=== PATIENT | female | born 1960 | race Hispanic/Latino ===

== ENCOUNTER 2024-09-04 18:02 | Emergency (ER) | payer OTHER, SELFPAY ==
[2024-09-04] VITALS (14 sets, daily range): BP systolic 107–151; BP diastolic 65–87; PULSE 86–107; RESP 13–18; TEMP 36.5–36.6; O2SAT 90–100
--- NOTE | ~2024-09-04 | CT_ITS ---
CT abdomen pelvis w con Ordering provider: Karina Bowen PA-C History: 63 years Female with . LLQ pain, L flank pain, N/V . Comparison: July 14, 2017 Technique: CT abdomen and pelvis with IV and without oral contrast. Automated exposure control and it erative reconstruction technique were employed. The dose-length product was 557.45 mGy-cm. 100 mL Omn ipaque 350 was given IV. Findings: VISUALIZED LOWER CHEST: Dependent atelectatic changes. UPPER ABDOMINAL ORGANS: Liver: Fat infiltration. Hepatomegaly. Gallbladder: Status post cholecystectomy. Spleen: Normal. Stomach/duodenum: Diverticulum seen. Heart of the duodenum. Pancreas: Normal. Adrenals: Normal. Kidneys: Normal. PELVIC ORGANS: The bladder is underfilled. BOWEL AND MESENTERY: Colon: Diverticulitis of the sigmoid colon with thickened wall and surrounding fat stranding. No evid ence of abscess or free air. Normal appendix. Small Bowel: Normal. No obstruction. Peritoneum/mesentery: No free air or free fluid. No mesenteric lymphadenopathy. RETROPERITONEUM: Mild atheromatous disease of the abdominal aorta. No retroperitoneal lymphadenopat hy. MUSCULOSKELETAL: Superficial soft tissues: The superficial soft tissues are normal. Bones: Age appropriate degenerative changes of the spine. IMPRESSION: 1. Diverticulitis of the sigmoid colon. 2. Hepatomegaly with fat infiltration is Reviewed, dictated and finalized at location A.
--- OUTSIDE RECORDS SUMMARY | 2024-09-04 18:04 | XMS_ITS | Continuity of Care Document ---
Author Organization [facility] Address [address] [place] [address] Phone Care Team Providers Care Crystal Inspector Name Role Phone Unavailable Unavailable Unavailable Allergies, Adverse Reactions, Alerts Substance Reaction Status Criticality No Known Allergies Active No Inform ation Medications Medication Instructions Dosage Effective Dates (start - stop) Status Comments No Drug Therapy Prescribed Procedures Procedure Date Voided Encounter Advance Directives Directive Yes / No Effective Date File Name No Information Encounters Encounter Description Practice Location Reason(s) For Visit Diagnoses Date Provider Providers Copied on Encounter [facility] , [address], [place], [place], [id number], tel:[phone] [employer] [place] On Page HEP A Vaccine (chief complaint) Encounter for immunization 8 No Information Family History Family Member Type Diagnosis Age At Onset No Information Payers Payer name Insurance type Covered democrat ID Authoriza tiradha(s) [facility] [id number] Social History Type Description Quantity Date Captured Comments Alcohol Use Details Unknown Caffeine Use Details Unknown Tobacco Use Status Never smoked tobacco 2017 Smoking Status Never smoker Non-Smoking Tobacco Use Details : No Details Available : No Details Available Sex Female Vital Signs Date / Time: Height Weight BMI Pulse Rate Blood Pressure Temperature Respiratory Rate Body Surface Area Head Circumference Head Circ. Percentile Wt./Adam. Percentile BMI percentile Pulse Ox Inhaled Ox 9:47 AM 61.00 in 741.805 kg (1635.4 0 lbs) 309. 00 kg/m eter (2) 81 /min 154/96 mm[Hg] 97.50 F 100 /min Chief Complaint And Reason For Visit From encounter dated '06/05/2017 09:45'. HEP A Vaccine (chief complaint) Reason For Referral Reason For Referral No Information History Of Present Illness Encounter Date Complaint History Of Prese nt Illness HEP A Vaccine Functional Status Date Functional Assessmen t No Information Medications Administered Medication Instructions Dosage Effective Dates (start - stop) Status Comments No Drug Therapy Prescribed Instructions Date Instruction Additional Infor mation No Information Assessments Type Assessment Date assessment Encounter for immunization Patient Care Teams Name Effective Dates (start - stop) Status Members No Information
--- OUTSIDE RECORDS SUMMARY | 2024-09-04 18:04 | XMS_ITS | CONTINUITY OF CARE DOCUMENT ---
Author Name keily michaud Address Unknown Organization [facility] Address [address] [place] [address] Phone [phone] Care Team Providers Care Central Office Associate Name Role Phone Garth Best MD Unavailable [phone] Garth Best MD Unavailable [phone] INSURANCE PROVIDERS Payer name Policy type / Coverage type [place] red constitution party ID AETNA SENIOR SUPPLEMENTAL INS Commercial insuran ce [employer] [id number]
--- NOTE | 2024-09-04 18:16 | ED_ITS ---
HPI - Abdominal Pain General Chief Complaint: Abdominal Pain Stated Complaint: L GROIN PAIN Time Seen by Provider: 09/04/24 18:09 Source: patient Mode of arrival: ambulatory Limitations: no limitations History of Present Illness HPI narrative: Patient is a 63-year-old female who presents the ED with report of left lower quadrant abdominal pain. Patient reports pain began this morning. Radiates around to her left lower back. Has not taken anything for pain. Reports some nausea and vomiting this morning. Last bowel movement was today, though patient reports she feels constipated. Denies fevers, dysuria, hematuria. Denies rectal bleeding or melena. She has previous history of diverticulitis and kidney stones, both of which feels somewhat similar. Related Data Allergies Allergy/AdvReac Type Severity Reaction Status Date / Time No Known Allergies Allergy Verified 09/04/24 18:03 Review of Systems 2 Review of Systems: All systems reviewed & are unremarkable except as noted in HPI. All systems reviewed & are unremarkable except as noted in HPI and below Exam 2 Narrative: GENERAL: Mildly uncomfortable appearing, obese with BMI of 32.7, non-toxic, in no acute distress. HEAD: Normocephalic, atraumatic. RESPIRATORY: Airway patent, respirations nonlabored. Clear to auscultation bilaterally, no rales, rhonchi, wheezing. CARDIOVASCULAR: Borderline tachycardic with regular rhythm without murmurs, rubs, or gallops. ABDOMINAL: Soft, tenderness to palpation in left lower quadrant and suprapubic region, no rebound. Nondistended. Normoactive BS. MUSCULOSKELETAL: Moves all extremities. No gross deformities. SKIN: Warm, dry, normal color. NEURO: A&O X3. Speech clear. Cranial nerves II-XII grossly intact. Steady gait. No ataxic movements. PSYCHIATRIC: Anxious, tearful. Normal interaction. Course Vital Signs Vital signs: Vital Signs Temperature 98 F 09/04/24 18:03 Pulse Rate 91 09/04/24 18:03 Respiratory Rate 16 09/04/24 18:03 Blood Pressure 151/87 H 09/04/24 18:03 Pulse Oximetry 98 09/04/24 18:03 Oxygen Delivery Room Air 09/04/24 18:03 Temperature 97.7 F 09/04/24 21:57 Pulse Rate 86 09/04/24 21:57 Respiratory Rate 16 09/04/24 21:57 Blood Pressure 127/76 09/04/24 21:57 Pulse Oximetry 98 09/04/24 21:57 Oxygen Delivery Room Air 09/04/24 18:03 MDM - Abdominal Pain MDM Narrative Medical decision making narrative: Patient presented to ED with left lower quadrant abdominal pain that began this morning, associated with nausea and vomiting. History of diverticulitis and previous kidney stones. Vital signs are stable upon arrival. Patient is afebrile. Cbc with white blood cell count of 18.9. No bandemia. CMP with anion gap of 14. Stable kidney function. Otherwise stable electrolytes. Normal LFTs and lipase. Urine with elevated specific gravity. No signs of infection. Given fluids and pain medication. CT scan of abdomen/pelvis was obtained and showing uncomplicated diverticulitis of sigmoid colon. No perforation or abscess. No ureterolithiasis. Discussed lab and imaging findings with patient. She is feeling better with supportive therapy. Discussed the need for antibiotics for diverticulitis. Discussed D/C home versus admission. Offered admission, utilize shared decision-making. Patient states she prefers to go home. She does feel comfortable going home. Will discharge on Cipro and Flagyl, short course of pain medication. Patient given 1st doses in the ED. Able to tolerate p.o. intake. Discussed very strict return precautions. Patient in agreement with plan. Discharged in stable condition. Medical Records Attestation: I reviewed the patient's medical records. Lab Data Attestation: I reviewed the patient's lab results. 09/04/24 18:25 09/04/24 18:33 Labs: Lab Results 09/04/24 09/04/24 09/04/24 Range/Units 18:25 18:33 20:03 WBC 18.9 H (4.5-10.0) K/mm3 RBC 4.43 (4.2-5.4) M/mm3 Hgb 13.0 (12.0-15.0) g/dL Hct 39.3 (37.0-47.0) % MCV 88.7 (80-100) fl MCH 29.3 (26-34) pg MCHC 33.1 (32-36) g/dl RDW 14.3 (11.5-14.5) % Plt Count 301 (150-375) k/mm3 MPV 11.2 H (7.4-10.4) fl Immature Gran % (Auto) 0.5 (0-0.5) % Neut % (Auto) 68.7 (45.5-73.1) % Lymph % (Auto) 24.3 (18.3-44.2) % [place] % (Auto) 5.7 (2.6-8.5) % Eos % (Auto) 0.5 (0-4.4) % Baso % (Auto) 0.3 (0.2-1.2) % Lymph # (Auto) 4.59 H (0.9-3.2) K/mm3 [place] # (Auto) 1.1 H (0.1-0.6) K/mm3 Eos # (Auto) 0.1 (0-0.3) K/mm3 Baso # (Auto) 0.1 (0.0-0.1) K/mm3 Abs Immat Gran (auto) 0.09 H (0.00-0.031) K/mm3 Absolute Neuts (auto) 13.0 H (1.3-6.7) K/mm3 Absolute Nucleated RBC 0.000 (0.0-0.012) K/mm3 Nucleated RBC % 0.0 (0.0-0.2) % Sodium 137 (137-145) mmol/L Potassium 4.3 (3.4-5.0) mmol/L Chloride 100 (98-107) mmol/L Carbon Dioxide 23 (22-30) mmol/L Anion Gap 14 H (4-12) mmol/L BUN 14 (7-17) mg/dL Creatinine 0.62 L 0.80 (0.7-1.0) mg/dL Estim Creat Clear Calc 77 61 ml/min Estimated GFR > 60 > 60 (59 - ) Glucose 113 H (65-110) mg/dL Calcium 9.4 (8.4-10.2) mg/dL Total Bilirubin 0.9 (0.2-1.3) mg/dL AST 23 (14-36) U/L ALT 26 (6-35) U/L Alkaline Phosphatase 115 (38-126) U/L Total Protein 8.0 (6.3-8.2) g/dL Albumin 4.5 (3.5-5.1) g/dL Lipase 86 (23-300) U/L Urine Color Yellow (Yellow) Urine Appearance Clear (Clear) Urine pH 5.5 (5.0-9.0) Ur Specific [place] > 1.045 H (1.001-1.035) Urine Protein Negative (Negative) mg/dL Urine Glucose (UA) Negative (Negative) mg/dL Urine Ketones Negative (Negative) mg/dL Ur Blood (Man) Negative (Negative) Urine Nitrate Negative (Negative) Urine Bilirubin Negative (Negative) Urine Urobilinogen 0.2 (<2.0) mg/dL Leukocyte Esterase Rfl Negative (Negative) DAMON/UL Imaging Data Attestation: I personally reviewed and interpreted this imaging study as follows: Radiologist's impression: ITS Impressions Abdomen/Pelvis CT 09/04/24 19:39 IMPRESSION: 1. Diverticulitis of the sigmoid colon. 2. Hepatomegaly with fat infiltration is Discharge Plan Discharge Clinical Impression: Diverticulitis of sigmoid colon Patient Disposition: Home Condition: Stable Instructions: Antibiotic Form, Diverticulitis (ED), Diverticulitis Diet (ED) Additional Instructions: Take both antibiotics as prescribed. It is important you finish both courses. Do not drink alcohol while taking metronidazole/Flagyl as this can cause a vomiting reaction. Continue Tylenol, ibuprofen as needed for pain. Fork as needed for more severe pain. Utilize Zofran as needed for nausea. Stay well- hydrated. It is recommended you follow a low-fiber diet while on antibiotics, then gradually increase fiber intake. Follow-up closely with your primary care doctor for further evaluation within the next 1 week. Return to the ED if you experience worsening or severe pain, unable to keep down food/drink/antibiotics, persistent fevers, rectal bleeding, or any other symptoms of concern. Patient Language: Telugu Prescriptions: New hydrocodone-acetaminophen 5-325 mg tablet 1 tablet PO Q6H PRN (Reason: pain) Qty: 10 0RF metronidazole 500 mg tablet 500 mg PO Q8H 7 Days Qty: 21 0RF ciprofloxacin HCl 500 mg tablet 500 mg PO Q12H 7 Days Qty: 14 0RF ondansetron 4 mg tablet,disintegrating 4 mg PO Q8H PRN (Reason: nausea and vomiting) Qty: 15 0RF Follow-up/Referrals: UNKNOWN,DOCTOR [Primary Care Provider] - Time of Disposition: 20:56
[2024-09-04] MEDS: oxyCODONE HCL (*CRX) 5 MG TAB IR PO (18:24)
[2024-09-04 18:34] LABS: Basophils Absolute Auto 0.1 K/mm3 (0.0-0.1); Basophils Percent Auto 0.3 % (0.2-1.2); Eosinophils Absolute Auto 0.1 K/mm3 (0-0.3); Eosinophils Percent Auto 0.5 % (0-4.4); Hematocrit 39.3 % (37.0-47.0); Immature Granulocyte Absolute 0.09 K/mm3 (0.00-0.031); Immature Granulocyte Percent A 0.5 % (0-0.5); Lymphocytes Absolute Auto 4.59 K/mm3 (0.9-3.2); Lymphocytes Percent Auto 24.3 % (18.3-44.2); Mean Corpuscular HGB Conc 33.1 g/dl (32-36); Mean Corpuscular Hemoglobin 29.3 pg (26-34); Mean Corpuscular Volume 88.7 fl (80-100); Mean Platelet Volume 11.2 fl (7.4-10.4); Monocytes Absolute Auto 1.1 K/mm3 (0.1-0.6); Monocytes Percent Auto 5.7 % (2.6-8.5); Neutrophils Percent Auto 68.7 % (45.5-73.1); Platelet Count Result 301 k/mm3 (150-375); Red Blood Count 4.43 M/mm3 (4.2-5.4); Red Cell Distribution Width 14.3 % (11.5-14.5); White Blood Count 18.9 K/mm3 (4.5-10.0)
[2024-09-04 18:35] LABS: Estimated CRCL calculation 61 ml/min; Estimated Glomerular Filt Rate > 60
[2024-09-04 19:12] LABS: Alanine Aminotransferase 26 U/L (6-35); Albumin Level 4.5 g/dL (3.5-5.1); Alkaline Phosphatase 115 U/L (38-126); Anion Gap 14 mmol/L (4-12); Aspartate Amino Transferase 23 U/L (14-36); Bilirubin,Total 0.9 mg/dL (0.2-1.3); Blood Urea Nitrogen 14 mg/dL (7-17); Calcium 9.4 mg/dL (8.4-10.2); Carbon Dioxide 23 mmol/L (22-30); Chloride 100 mmol/L (98-107); Estimated CRCL calculation 77 ml/min; Estimated Glomerular Filt Rate > 60; Glucose 113 mg/dL (65-110); Lipase 86 U/L (23-300); Potassium 4.3 mmol/L (3.4-5.0); Sodium 137 mmol/L (137-145)
--- OUTSIDE RECORDS SUMMARY | 2024-09-04 19:44 | XMS_ITS | Continuity of Care Document ---
Author Organization [facility] Address [address] [place] [address] Phone Care Team Providers Care Olap Developer Name Role Phone Unavailable Unavailable Unavailable Allergies, [...] Diagnoses Date Provider Providers Copied on Encounter [facility] , [address], [place], [place], [id number], tel:[phone] [employer] On Page HEP A Vaccine (chief complaint) Encounter for immunization 8 No Information Family History Family Member Type Diagnosis Age At Onset No Information Payers Payer name Insurance type Covered republican ID Authoriza tiradha(s) [facility] [id number] Social History Type Description Quantity Date Captured [...]
--- OUTSIDE RECORDS SUMMARY | 2024-09-04 19:44 | XMS_ITS | CONTINUITY OF CARE DOCUMENT ---
Author Name keily michaud Address Unknown Organization [facility] Address [address] [place] [address] Phone [phone] Care Team Providers Care Sustainability Officer Name Role Phone Garth Best MD Unavailable [phone] Garth Best MD Unavailable [phone] INSURANCE PROVIDERS Payer name Policy type / Coverage type [place] red constitution party ID AETNA SENIOR SUPPLEMENTAL INS Commercial insuran ce [employer] [id number]
--- OUTSIDE RECORDS SUMMARY | 2024-09-04 19:44 | XMS_ITS | Clinical Summary ---
Author Organization [facility] Address [address] [place] [address] Care Team Providers Care Breakfast Host Name Role Phone Unavailable Primary Care Provider Unavailabl e Social History Tobacco Use Types Packs/Day Years Used Date Smoking Tobacco: Never Assessed Comments Unknown Sex and Gender Information Value Date Recorded Sex Assigned at Not on file Legal Sex Female 7:45 PM CDT Gender Identity Not on file Sexual Orientation Not on file Plan of Treatment Health Maintenance Due Date Last Done Comments Cervical Cancer Screening Pa p Smear (Age 30 to 64) Every 3 Years 1962 Colorectal Cancer Screening Colonoscopy (10 Years) 1962 Annual Physical 1965 Hepatitis C 1980 DTaP, Tdap and Td Vaccines ( 1 - Tdap) 1981 Cervical Cancer Screening Pa p with HPV Testing (Age 30 to 64) Every 5 Years 1992 Cervical Cancer Screening with HPV 1992 Mammogram Screening 2002 Zoster Vaccines (1 of 2) 2012 COVID-19 Vaccine ( - 2023-2 5 season) 2024 RSV Immunization or 60+ Years (1 - 1-dose 75+ series) 2037 Meningococcal B Vaccine Aged Out No l onger eligible based on patient's age to complete this topic Meningococcal Vaccine Aged Out No urban rohith eligible based on patient's age to complete this topic Pneumococcal Vaccine: Pediat rics (0 to 5 Years) and At-Risk Patients (6 to 64 Years) Aged Out No longer eligible b ased on patient's age to complete this topic RSV Immunizations Under 20 Months Aged Out No longer eligible based on patient's age to complete this topic
--- OUTSIDE RECORDS SUMMARY | 2024-09-04 19:45 | XMS_ITS | Data Portability ---
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 Data reviewed and explained to the patient. Average apnea/hypopnea index (AHI) is 1.9. Patient used PAP > 4 hours 88% of the time. PAP is set at 5-15 cmH2O. PAP be reset at 6-9 cmH2O. Oxygen supplementation: none Patient is benefiting from PAP therapy. Encouraged patient to maintain PAP use more than 70% of the time. Statement of PAP use and benefits will be sent to the home care store. Educated the patient on problems and solutions associated with positive airway pressure (PAP) use. Difficulty tolerating pressure, mask leaks, intolerance of interface, nasal congestion, claustrophobic response, dry mouth, and unintentional mask removal during sleep were covered. Patient has some difficulty tolerating pressure. Patient is advised to practice wearing PAP daily while awake, lower pressure with or without sleeping on sides, activate PAP ramp feature, have blower checked to make sure pressure is set as prescribed and return to sleep center for consideration of auto-adjusting PAP therapy. Patient experiences nasal congestion. Patient will use nasal saline spray before starting PAP, use heated PAP humidifier, clean/air dry humidifier reservoir daily, use nasal steroid spray, use ipratropium bromide nasal spray if rhinitis/rhinorrhe a is present or obtain an oronasal/oral interface. Dry mouth is a normal occurrence for people who just start out on PAP therapy because they are not used to air blowing in to the throat to hold open. Dry mouth is exacerbated for people who wear nasal PAP mask and whose jaw drops open during sleep. Not only does this create a much less efficient therapy because of leakage, it also causes dry mouth. There are a couple solutions to help prevent this type of problem. A simple solution would be to wear a chinstrap which essentially holds the jaw in place. A second solution would be a switch to a full face mask which covers both the nose and mouth. Although this is another easy solution, using a full face mask for some could seem claustrophobic or confining. There is no silver bullet solution as no single mask is right for everybody. Sometimes it takes a bit of experimentation to find a PAP mask which best meets the patient's needs as well as fits comfortably. Another tactic is to use a humidifier on your PAP machine. Most new PAP machines have integrated humidifiers. Humidification is benz when dealing with symptoms of dry mouth because the humidifier can supply both warm and room temperate air. Even a small amount of humidity in the airflow will help nasal passages to stay hydrated. If a person is using both a full face mask and a PAP machine with a heated humidifier and is still experiencing dry mouth, an ill-fitted PAP mask might be causing the problem. Leakage can be caused by a mask that is to large or small, the wrong style mask, the cushion is degraded or simply because the mask's straps aren't adjusted correctly. If leakage occurs, dry air from the room can leak in while humidification escapes. The result is reduced humidification within the circuit and resulting in dry throat and mouth. Finally, beyond factors involving the PAP machine and mask, dry mouth can also be caused or worsened by dehydration. The general recommendation to during eight 8 oz. glasses of water a day might be too little for many people. When people drink large amounts of coffee or other caffeine beverages, or sweat a lot during the day, making sure to rehydrate is an important part of PAP therapy. Provided the patient with a list of local home care stores where positive airway pressure (PAP) units, accouterments, and services are available. Home care store selection is based on patient's insurance carrier. Patient will setup an appointment with [facility] for supplies and pressure adjustments. A major predictor of success with use of PAP is follow-up with both the respiratory supplier and the treating physician. The respiratory supplier optimally will follow-up within two weeks after starting use while the treating physician optimally will follow-up within 90 days after starting therapy to assess adherence and effectiveness of treatment. The download results can show the treating physician information about adherence to treatment, residual AHI while on treatment and presence of large mask leakage. This information is especially helpful if the patient has residual sleepiness despite treatment. General information on sleep disorder breathing, evaluation of sleep disordered breathing, treatment with PAP therapy, and living with PAP therapy were covered. We discussed with the patient the impact of weight on: Sleep disordered breathing Hypertension Mixed hyperlipidemia IGT We discussed with the patient the benefit of PAP therapy on: Sleep disordered breathing Hypertension IGT Educated the patient on sleep hygiene measures. Relaxing rituals to rest easy, understanding foods with positive and negative impact on sleep, creating a peaceful sleep environment, timing of exercise, using herbal sleep aids, and practicing sleep-friendly meditation were covered. To determine how much sleep is needed, the patient will assess where (s)he falls on the spectrum, examine what lifestyle factors such as work schedules and stress are affecting the quality and quantity of sleep. In general, adults need 7-9 hours of sleep. Educated the patient regarding foods that promote sleep. These include but are not limited to cherries, bananas, toast, oatmeal, and warm milk. Educated the patient regarding foods and drinks to avoid before bedtime. These include but are not limited to aged cheese, chocolate, spicy foods, tomato-based sauces, soy, ginseng tea and processed meat. Advocated influenza vaccination annually and pneumonia vaccination in 2027. Advocated weight loss through diet and exercise. Patient's ideal body weight according to height and gender is up to 115 lbs. Encouraged patient to adjust caloric intake to maintain/achieve ideal body weight, emphasizing on fruits, vegetables, whole grains, and fat-free or low-fat products. These include lean meats, poultry, fish, beans, eggs, and nuts and foods that are low in saturated fats, trans-fats, cholesterol, salt (sodium), and glycemic index. Stressed the importance of regular exercise up to the patient's capacity limits. In this case, we recommend 20 min daily walking, 2 days a week of resistance training. Patient to monitor BP daily and bring records to PCP for further management. Follow-up: 1 year, October 2023 Not available 11/06/2022 11:05:31 11/25/2022 11/25/2022 Assessment: Rhinitis Mild OSAHS, AHI = 9 Plan: The following were reviewed and explained to the patient: [facility] home sleep study 02/20/22 AHI = 9 PAP compliance downloaded and interpreted x 20 minutes. Data reviewed and explained to the patient. Average apnea/hypopnea index (AHI) is 2.8. Patient used PAP > 4 hours 5% of the time. PAP is set at 6-9 cmH2O. PAP be reset at 4-8 cmH2O. Oxygen supplementation: none Patient is benefiting from PAP therapy. Encouraged patient to maintain PAP use more than 70% of the time. Statement of PAP use and benefits will be sent to the home care store. Educated the patient on problems and solutions associated with positive airway pressure (PAP) use. Difficulty tolerating pressure, mask leaks, intolerance of interface, nasal congestion, claustrophobic response, dry mouth, and unintentional mask removal during sleep were covered. Patient has some difficulty tolerating pressure. Patient is advised to practice wearing PAP daily while awake, lower pressure with or without sleeping on sides, activate PAP ramp feature, have blower checked to make sure pressure is set as prescribed and return to sleep center for consideration of auto-adjusting PAP therapy. Patient experiences nasal congestion. Patient will use nasal saline spray before starting PAP, use heated PAP humidifier, clean/air dry humidifier reservoir daily, use nasal steroid spray, use ipratropium bromide nasal spray if rhinitis/rhinorrhe a is present or obtain an oronasal/oral interface. Dry mouth is a normal occurrence for people who just start out on PAP therapy because they are not used to air blowing in to the throat to hold open. Dry mouth is exacerbated for people who wear nasal PAP mask and whose jaw drops open during sleep. Not only does this create a much less efficient therapy because of leakage, it also causes dry mouth. There are a couple solutions to help prevent this type of problem. A simple solution would be to wear a chinstrap which essentially holds the jaw in place. A second solution would be a switch to a full face mask which covers both the nose and mouth. Although this is another easy solution, using a full face mask for some could seem claustrophobic or confining. There is no silver bullet solution as no single mask is right for everybody. Sometimes it takes a bit of experimentation to find a PAP mask which best meets the patient's needs as well as fits comfortably. Another tactic is to use a humidifier on your PAP machine. Most new PAP machines have integrated humidifiers. Humidification is benz when dealing with symptoms of dry mouth because the humidifier can supply both warm and room temperate air. Even a small amount of humidity in the airflow will help nasal passages to stay hydrated. If a person is using both a full face mask and a PAP machine with a heated humidifier and is still experiencing dry mouth, an ill-fitted PAP mask might be causing the problem. Leakage can be caused by a mask that is to large or small, the wrong style mask, the cushion is degraded or simply because the mask's straps aren't adjusted correctly. If leakage occurs, dry air from the room can leak in while humidification escapes. The result is reduced humidification within the circuit and resulting in dry throat and mouth. Finally, beyond factors involving the PAP machine and mask, dry mouth can also be caused or worsened by dehydration. The general recommendation to during eight 8 oz. glasses of water a day might be too little for many people. When people drink large amounts of coffee or other caffeine beverages, or sweat a lot during the day, making sure to rehydrate is an important part of PAP therapy. Provided the patient with a list of local home care stores where positive airway pressure (PAP) units, accouterments, and services are available. Home care store selection is based on patient's insurance carrier. Patient will setup an appointment with [facility] for supplies and pressure adjustments. A major predictor of success with use of PAP is follow-up with both the respiratory supplier and the treating physician. The respiratory supplier optimally will follow-up within two weeks after starting use while the treating physician optimally will follow-up within 90 days after starting therapy to assess adherence and effectiveness of treatment. The download results can show the treating physician information about adherence to treatment, residual AHI while on treatment and presence of large mask leakage. This information is especially helpful if the patient has residual sleepiness despite treatment. General information on sleep disorder breathing, evaluation of sleep disordered breathing, treatment with PAP therapy, and living with PAP therapy were covered. We discussed with the patient the impact of weight on: Sleep disordered breathing Hypertension Mixed hyperlipidemia IGT We discussed with the patient the benefit of PAP therapy on: Sleep disordered breathing Hypertension IGT Educated the patient on sleep hygiene measures. Relaxing rituals to rest easy, understanding foods with positive and negative impact on sleep, creating a peaceful sleep environment, timing of exercise, using herbal sleep aids, and practicing sleep-friendly meditation were covered. To determine how much sleep is needed, the patient will assess where (s)he falls on the spectrum, examine what lifestyle factors such as work schedules and stress are affecting the quality and quantity of sleep. In general, adults need 7-9 hours of sleep. Educated the patient regarding foods that promote sleep. These include but are not limited to cherries, bananas, toast, oatmeal, and warm milk. Educated the patient regarding foods and drinks to avoid before bedtime. These include but are not limited to aged cheese, chocolate, spicy foods, tomato-based sauces, soy, ginseng tea and processed meat. Advocated influenza vaccination annually and pneumonia vaccination in 2027. Advocated weight loss through diet and exercise. Patient's ideal body weight according to height and gender is up to 115 lbs. Encouraged patient to adjust caloric intake to maintain/achieve ideal body weight, emphasizing on fruits, vegetables, whole grains, and fat-free or low-fat products. These include lean meats, poultry, fish, beans, eggs, and nuts and foods that are low in saturated fats, trans-fats, cholesterol, salt (sodium), and glycemic index. Stressed the importance of regular exercise up to the patient's capacity limits. In this case, we recommend 20 min daily walking, 2 days a week of resistance training. Patient to monitor BP daily and bring records to PCP for further management. Follow-up: 1 year, November 2023 Not available 11/25/2022 12:22:39 09/01/2023 09/01/2023 Dermatitis roxane LE's [email or web address] Not available 09/01/2023 10:45:02 Plan of Treatment Reminders Order Date Submit Date Provider Last Modified By Organization Details Last Modified Time Details Appointments New Patient 15 2024 03:00P M Lewis Huang MD Not available Not available Not available Lab None recorded. Referral None recorded. Procedures colonosco py procedure (PROC) [facility] [address] [place], [address], 11/21/2022 08:54:52 Surgeries None recorded. Imaging None recorded. Medication Orders Golytely 236 gram-22.7 4 gram-6.74 gram-5.86 gram oral solution 2022 023 [facility], [address] [place], [place], [id number], 11/22/2022 23:42:18 Patient TargetsNo targets recorded. Patient Instructions Encounter Date Encounter Id Patient Instructions Last Modified By Organization Details Last Modified Time 10/30/2022 [id number] [email or web address] Not available 11/2022 14:52:36 PT WITH RECTAL BLEEDING . PT NEEDS A SCREENING COLON . R/O POLYP/CA/COLITIS . RECOMMEND A COLONOSOPY . Risks benefits and complications were explained to the pt. ( BLEEDING PERFORATION , INFECTION , ). PT VERBALIZES UNDERSTANDING AND IS WILLING TO PROCEDE . [email or web address] Not available 10/30/2022 15:04:08 09/01/2023 [id number] Pt to take OTC Benadryl 50 mg t.i.d. if the problem recurs. [email or web address] Not available 09/01/2023 10:44:48 Pt has no recollection of any new medication or chemical, clothing to cause the reaction. [email or web address] Not available 09/01/2023 10:44:25 Reason for Referral None Reported. Results Created Date Observation Date Name Description Value Unit Range Abnormal Flag Note LastModifiedBy Organization Detail LastModifiedTime 02/27/2002/20/2022 home sleep study No observ ation record ed. [id number] Not Available 07/25/2022 01:28:22 11/22/19 23 11/20/2022 colon oscop y proce dure (PROC ) No observ ation record ed. [email or web address] [facility] (Pre-Screen) [address] [place], [address], 11/21/2022 08:54:52 Result Notes None recorded. Problems Name Problem SNOMED Code Status Onset Date Resolution Date Notes Provider Name and Address Organization Details Recorded Time Sleep apnea 06356835 Active 2021 Not Available [facility] 3 01:25:45 Obstructive sleep apnea syndrome 10123378 Active 2022 Tamiko Carty MA null, [facility] [facility] 3 12:14:26 Periodic limb movement disorder 538067851 Active 2022 Tamiko Carty MA null, [facility] 3 12:14:42 Sleep hypoventilati on 290997390 Active 2022 Tamiko Carty MA null, [facility] [facility] 3 12:15:05 Hematochezia 069617705 Active 2022 Connie Delgado MD [address], [address] , [facility] [facility] 3 14:53:37 Notes:Medical History: Left hearing loss Rhinitis Obesity with mild OSAHS, AHI = 9, 02/20/22 Hypertension Mixed hyperlipidemia IGT ASCUS Procedure History: C- sections 1983, 1984, 1986 Right elbow repair 2016 Left elbow repair 2018 Cholecystectomy 2019 Problem Notes None recorded. Procedures Surgical History Date Name Laterality Status Provider Name and Address Organization Details Recorded Time Elbow arthroscopy/surgery completed Not Available [facility] 023 01:24:03 cholecystectomy completed Not Available [employer] [facility] 07/25/2022 01:24:03 section completed ANNEMARIE Silva [facility] [facility] 10/29/2022 14:12:53 Imaging Results Imaging Date Name Status LastModified by [facility] Details LastModified Time 02/20/2022 home sleep study completed [id number] Information not available 07/25/2022 01:28:22 11/20/2022 colonoscopy procedure (PROC) completed [email or web address] [facility] (Pre-Screen) [address] [place], [address], 11/21/2022 08:54:52 Procedure Notes None recorded. Medical Equipment None Reported. Allergies No known drug allergies Medications Name Sig Start Date Stop Date Status Note LastModified by Organization Details LastModified Time device true metrix meter USE DIRECTED active Not Available Not Available No t Available metformin 500 mg tablet TAKE ONE TABLET BY MOUTH TWICE DAILY FOR DIABETES active Not Available Not Available No t Available atorvastati n 20 mg tablet TAKE ONE TABLET BY MOUTH EVERY NIGHT AT BEDTIME TO LOWER CHOLESTER OL active Not Available Not Available No t Available lisinopril 20 mg-hydrochl orothiazide 12.5 mg tablet TAKE ONE TABLET BY MOUTH EVERY MORNING FOR BLOOD PRESSURE & FLUID RETENTION 10/29 completed Not Available Not Available Not Available metronidazo le 500 mg tablet TAKE ONE TABLET BY MOUTH EVERY TWELVE HOURS FOR 7 DAYS active Not Available Not Available No t Available amlodipine 5 mg tablet TAKE ONE TABLET BY MOUTH EVERY MORNING FOR BLOOD PRESSURE active Not Available Not Available No t Available ciprofloxac in 500 mg tablet TAKE ONE TABLET BY MOUTH EVERY TWELVE HOURS FOR 7 DAYS active Not Available Not Available No t Available betamethaso ne dipropionat e 0.05 % topical cream apply a thin layer TO THE affected area(s) topically TWICE DAILY FOR FOURTEEN DAYS 10/29 completed Not Available Not Available Not Available lisinopril 20 mg-hydrochl orothiazide 25 mg tablet TAKE ONE TABLET BY MOUTH EVERY MORNING FOR FLUID RETENTION AND FOR BLOOD PRESSURE active Not Available Not Available No t Available alcohol swabs USE TO CLEAN THE INJECTION SITE OF INSULIN AND WHEN CHECKING BLOOD SUGAR active Not Available Not Available No t Available betamethaso ne dipropionat e 0.05 % topical ointment APPLY A THIN LAYER TO AFFECTED AREAS OF THE SKIN ONCE DAILY active Not Available Not Available No t Available metformin ER 500 mg tablet,exte nded release 24 hr TAKE ONE TABLET DAILY AFTER EVENING MEAL FOR DIABETES active Not Available Not Available No t Available nitrofurant oin monohydrate /macrocryst als 100 mg capsule TAKE ONE CAPSULE EVERY TWELVE HOURS BY MOUTH DIRECTED FOR 5 DAYS 11/06 completed Not Available Not Available Not Available docusate sodium 11/06 completed Not Available Not Available Not Available Metamucil 11/06 completed Not Available Not Available Not Available peg 3350-electr olytes 236 gram-22.74 gram-6.74 gram-5.86 gram solution USE DIRECTED by office 11/22 completed Not Available Not Available Not Available TRUEplus Lancets 30 gauge USE TO CHECK BLOOD SUGAR EVERY MORNING active Not Available Not Available No t Available Linzess 145 mcg capsule TAKE ONE CAPSULE BY MOUTH EVERY DAY active Not Available Not Available No t Available True Metrix Glucose Test Strip USE TO CHECK BLOOD SUGAR ONCE DAILY IN THE MORNING active Not Available Not Available No t Available Vitals Date Recorded Body mass index (BMI) Heart rate Body height Oxygen saturation Oxygen saturation in Arterial blood by Pulse oximetry Heart rate Respiratory rate Body temperature Body weight Systolic blood pressure Diastolic blood pressure Provider Name and Address Organization Details Last Updated DateTime 2 33 kg/m2 78 /min 154.94 cm 99 % 99 % 78 /min 15 /min 98.1 [degF] 97963.2 3 g 118 mm[Hg] 74 mm[Hg] Not Available [facility] 3 01:24:51 Date Recorded Body height Body mass index (BMI) Body weight Heart rate Oxygen saturation Oxygen saturation in Arterial blood by Pulse oximetry Systolic blood pressure Diastolic blood pressure Provider Name and Address Organization Details Last Updated DateTime 3 154.94 cm 32.9 kg/m2 27713.0 7 g 80 /min 98 % 98 % 120 mm[Hg] 76 mm[Hg] ANNEMARIE Silva [employer] [facility] 3 14:50:26 Date Recorded Body height Body mass index (BMI) Body weight Body temperature Heart rate Oxygen saturation Oxygen saturation in Arterial blood by Pulse oximetry Systolic blood pressure Diastolic blood pressure Provider Name and Address Organization Details Last Updated DateTime 3 154.94 cm 34 kg/m2 34743.6 3 g 98.2 [degF] 71 /min 97 % 97 % 118 mm[Hg] 72 mm[Hg] Tamiko Carty MA [employer] [facility] 3 10:49:12 Date Recorded Heart rate Respiratory rate Provider Elbert lucero and Address Organization Details Last Updated DateTime 11/06/2022 71 /min 15 /min Star Armstrong MD [address], [place] [address], [place], [address], [place] [employer] [facility] Figure 1 11/06/2022 11:11:58 Date Recorded Body height Body mass index (BMI) Body weight Body temperature Heart rate Oxygen saturation Oxygen saturation in Arterial blood by Pulse oximetry Systolic blood pressure Diastolic blood pressure Provider Name and Address Organization Details Last Updated DateTime 3 154.94 cm 33.8 kg/m2 85643.0 3 g 98.3 [degF] 71 /min 98 % 98 % 120 mm[Hg] 76 mm[Hg] Tamiko Carty MA [facility] [employer] [facility] 3 11:59:47 Date Recorded Heart rate Respiratory rate Provider N nic and Address Organization Details Last Updated DateTime 11/25/2022 71 /min 14 /min Star Armstrong MD [address] [facility], [facility] [address], [place], [address], [place] [employer] [facility] Figure 1 11/25/2022 12:18:23 Date Recorded Body height Body mass index (BMI) Body weight Oxygen saturation Oxygen saturation in Arterial blood by Pulse oximetry Body temperature Heart rate Systolic blood pressure Diastolic blood pressure Provider Name and Address Organization Details Last Updated DateTime 4 154.94 cm 33.8 kg/m2 17785.0 3 g 96 % 96 % 98.2 [degF] 89 /min 125 mm[Hg] 79 mm[Hg] ANNEMARIE Olson [facility] 1 4 10:25:13 Social History Question Answer Notes LastModified by Organizat ion Details LastModified Time Tobacco Smoking Status Former Smoker Not Available [facility] 07/25/2022 01:23:39 What Is Your Level Of Alcohol Consumption? None [id number] Information not available 07/25/2022 What Is Your Level Of Caffeine Consumption? Occasional [id number] Information not available 07/25/2022 In The 14 Days Before Symptom Onset, Have You Had Close Contact With A Laboratory-confi rmed COVID-19 While That Case Was Ill? No [id number] Information not available 07/25/2022 In The 14 Days Before Symptom Onset, Have You Had Close Contact With A Person Who Is Under Investigation For COVID-19 While That Person Was Ill? No [id number] Information not available 07/25/2022 What Type Of Diet Are You Following? REGULAR MIGRATION.[id number] Information not available 07/25/2022 Do You Have An Electrostatic Air Filter? No MIGRATION.35909 [id number] Information not available 07/25/2022 When Did You Quit Smoking? 6-10yearssincelastc igarette MIGRATION.64156 [id number] Information not available 07/25/2022 Are There Any Guns Present In Your Home? No MIGRATION.46907 [id number] Information not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
--- NOTE | 2024-09-04 20:06 | PC.NURSE ---
Patient ambulatory with steady gait with assistance to BR. Urine sample provided and sent to lab.
[2024-09-04 20:30] LABS: Add Urine Microscopic? NO; Appearance Urine Clear (Clear); Bilirubin Urine Negative (Negative); Blood Urine Negative (Negative); Color Urine Yellow (Yellow); Glucose Urine UA Negative (Negative); Ketones Urine Negative (Negative); Leukocyte Esterase Ur Negative LEU/UL (Negative); Nitrate Urine Negative (Negative); Protein Urine Negative (Negative); Specific Grav Ur > 1.045 (1.001-1.035); Urobilinogen Urine 0.2 mg/dL (<2.0); pH Urine 5.5 (5.0-9.0)
[2024-09-04] MEDS: KETOROLAC 30 MG/ML VIAL (*BKC) IV PUSH (20:37)
[2024-09-04] MEDS: CIPROFLOXACIN 500 MG TAB PO (20:38)
[2024-09-04] MEDS: metroNIDAZOLE 500 MG TABLET PO (20:38)
[2024-09-04] MEDS: SODIUM CHLORIDE 0.9% IV 1,000 ML 999 ML IV CONT (20:38)
== END 2024-09-04 21:58 | disposition home or self-care (01) ==
PROVIDERS: Emergency Provider Physician Assistant
DX: K57.32 Diverticulitis of large intestine without perforation or abscess without bleeding (principal); K76.0 Fatty (change of) liver, not elsewhere classified
CPT/HCPCS: 36415; 74177; 80053; 81003; 83690; 85025; 96361; 96374; 99284; A9270; J1885; J7030; Q9967